=== PATIENT | female | born 1950 | race Caucasian/White ===

== ENCOUNTER → 2017-03-03 | Outpatient (CLI) | payer MEDICARE ==
[~2017-03-03] MED LIST: ASPIRIN 81MG TA81 MG PO; CALTRATE 600 +1 EACH PO; CIPRO 500MG TA500 MG PO; FLONASE 50 MCG16 GM; K-DUR 2020 MEQ PO; METFORMIN 500M500 M1 PO; MOTRIN 400MG.400 MG PO; TESSALON PERLE100 MG PO; VALSARTAN AND H1 TA2 PO; ZITHROMAX Z PA250 MG PO
--- NOTE | 2017-03-04 09:47 | RADIOLOGY REPORT PS360 ---
DIG MAMM-SCREEN [facility] W/CAD CAD Screening ORDERING PHYSICIAN : Kelly Pugh APRN PATIENT AGE: 66 years GENDER: Female COMPARISON: Previous mammograms: January 2016 and December 1999 27 November 2013 INDICATION: Routine screening no hormones. No new complaints. Noncontributory family history. TECHNIQUE: Standard CC and MLO images were obtained. R2 CAD reviewed. FINDINGS: Lower density breast bilaterally with no dominant mass nor suspicious calcifications either breast. No areas of concern follow-up in one year recommended IMPRESSION: Stable bilateral mammogram. No new areas of concern. Routine annual follow-up recommended BI-RADS CATEGORY: 1_Negative RECOMMENDED FOLLOWUP: 12M 12 MONTH FOLLOW-UP (A letter has been sent to the patient regarding results of the study.)
== END ==
LOC: RAD 09:29
DX: Z12.31 Encounter for screening mammogram for malignant neoplasm of breast (principal)
CPT/HCPCS: G0202